=== PATIENT | male | born 1950 | race Caucasian/White ===

== ENCOUNTER → 2017-03-27 | Outpatient (CLI) | payer MEDICARE, BC ==
[~2017-03-27] MED LIST: NEURONTIN100 MG PO; REQUIP0.25 MG PO; VASOTEC10 MG PO
--- NOTE | ~2017-03-27 | CR63 ---
[facility] A Service of [facility] & [facility] RADIOLOGY TEXT RESULTS PATIENT: DEDE GARNICA LOCATION: [facility] : 50 UNIT #: [id number] AGE: [address]: Gonzales Nuñez MD SEX: M ORDER DR: [id number] [facility] [address] [place], [place] [address] [id number] O MR#: [id number] Acc #: [id number] NAME: DEDE GARNICA : 1950 SEX: M STUDY DATE/TIME: 03/27/2017 9:59 UNIT: [facility] ROOM: STUDY DESCRIPTION: CR Chest 2 View Attending Physician: Gonzales Nuñez M.D. Referring Physician: Gonzales Nuñez M.D. Ordering Physician: Gonzales Nuñez M.D. Primary Care Physician: Gonzales Nuñez M.D. MEDICAL IMAGING REPORT This report is preliminary unless electronic signature is present EXAM Chest PA and lateral, 03/27/2017 HISTORY Benign essential hypertension. History of long-term tobacco use. Cough for 1 month. Smoking history for 20 years. Short of breath for 1 month. FINDINGS Two views of the chest were obtained. The lungs are clear. The heart and mediastinum have a normal contour, and the heart size is normal. No pleural effusions are seen. The lungs are hyperinflated, consistent with chronic obstructive pulmonary disease. There is no evidence of active disease. IMPRESSION Chronic obstructive pulmonary disease. No active disease. Dictated by... Abdirahman Warren M.D. THIS IS AN ELECTRONICALLY VERIFIED REPORT Abdirahman Warren M.D. at 03/28/2017 2:17 PM KRT/jesus manuel TD: 03/27/2017 20:46 JOB #: [id number] MEDICAL IMAGING REPORT Page 1 of 1 COPY
== END | disposition home or self-care (01) ==
LOC: CRAD 09:44
DX: Z72.0 Tobacco use (principal); J44.9 Chronic obstructive pulmonary disease, unspecified; I10 Essential (primary) hypertension
CPT/HCPCS: 71020